=== PATIENT | male | born 1985 | race Caucasian/White ===

== ENCOUNTER 2017-03-09 11:38 | Emergency (ER) | payer SELFPAY ==
[2017-03-09] MEDS ORDERED: DEXAMETHASONE SOD PHOS INJ 10 MG/1 ML VIAL IM ONE (12:33)
--- NOTE | 2017-03-09 12:38 | ER Document Report ---
HPI - HPI Pain Level: 5 Notes: Patient is a 31-year-old male who presents the ED complaining of acute on chronic back pain status post injury while at work. 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 Patient states that since then he has not been able to stand straight up. Patient states that he will have intermittent numbness and tingling in his left foot, left toe, and left groin. Patient states that when he ambulates he feels like he is dragging his leg. Patient states that he did urinate thereafter, but states he had pain and some difficulty. Patient states that the active pushing caused his back pain to worsen, and with the amount of urine that he let out patient thought that it should came out easier. Patient denies any injections or procedures to his back , diabetes, IV drug use, or previous surgeries. His past medical history significant for hypertension. Patient does admit to smoking. Denies any headache, fever, chest pain, palpitations, syncope, cough, shortness of breath, wheeze, dyspnea, abdominal pain, nausea/vomiting/diarrhea, hematuria, loss of control of bowel or bladder, saddle anesthesia, muscle paralysis/weakness, or rash. Denies any recent illness or travel. - ROS Notes: REVIEW OF SYSTEMS: CONSTITUTIONAL : Denies fever, chills, or sweats. Denies recent illness. EENT: Denies eye, ear, throat, or mouth pain or symptoms. Denies nasal or sinus congestion or discharge. Denies throat, tongue, or mouth swelling or difficulty swallowing. CARDIOVASCULAR: Denies chest pain. Denies palpitations or racing or irregular heart beat. Denies ankle edema. RESPIRATORY: Denies cough, cold, or chest congestion. Denies shortness of breath, difficulty breathing, or wheezing. GASTROINTESTINAL: Denies abdominal pain or distention. Denies nausea, vomiting , or diarrhea. Denies blood in vomitus, stools, or per rectum. Denies black, tarry stools. Denies constipation. GENITOURINARY: see hpi MUSCULOSKELETAL: Denies back or neck pain or stiffness. Denies joint pain or swelling. SKIN: Denies rash, lesions or sores. NEUROLOGICAL: see hpi PSYCHIATRIC: Denies anxiety or stress. Denies depression, suicidal ideation, or homicidal ideation. ALL OTHER SYSTEMS REVIEWED AND NEGATIVE. Dictation was performed using [employer] voice recognition software - DERM Skin Color: Normal Past Medical History - Social History Smoking Status: Current Every Day Smoker Family History: Reviewed & Not Pertinent Patient has suicidal ideation: No Patient has homicidal ideation: No - Past Medical History Cardiac Medical History: Reports: Hx Hypertension Renal/ Medical History: Denies: Hx Peritoneal Dialysis Psychiatric Medical History: Reports: Hx Anxiety Past Surgical History: Reports: Hx Appendectomy - Immunizations Hx Diphtheria, Pertussis, Tetanus Vaccination: Yes Vertical Provider Document - CONSTITUTIONAL Agree With Documented VS: Yes Notes: No bladder perc PHYSICAL EXAMINATION: GENERAL: Well-appearing, well-nourished and in no acute distress. NECK: Normal range of motion, supple without lymphadenopathy LUNGS: Breath sounds clear to auscultation bilaterally and equal. No wheezes rales or rhonchi. HEART: Regular rate and rhythm without murmurs, rubs, gallops. ABDOMEN: Soft, nontender, nondistended abdomen. No guarding, no rebound. No masses appreciated. Normal bowel sounds present. No CVA tenderness bilaterally. No pulsatile mass. Musculoskeletal: LE's b/l: FROM to passive/active. Strength 5+/5. No focal deficits noted. No foot drop. No bony tenderness. Back: FROM to passive/active. No obvious deformity, abrasion, laceration noted. Strength 5+/5. + tenderness to the left L-paraspinal mm. No SI jt tenderness. Extremities: No cyanosis, clubbing, or edema b/l. Peripheral pulses 2+. Capillary refill less than 3 seconds. NEUROLOGICAL: ataxic gait. No foot drop. Normal sensory, motor exams. Sensation intact to sharp/soft/light. SLR negative b/l. Sphincter tone intact. PSYCH: Normal mood, normal affect. SKIN: Warm, Dry, normal turgor, no rashes or lesions noted. - INFECTION CONTROL TRAVEL OUTSIDE OF THE [place] IN LAST 30 DAYS: No - RESPIRATORY O2 Sat by Pulse Oximetry: 98 Course - Re-evaluation Re-evalutation: 03/09/17 14:[address] Turner who is in agreement with discharge/plan. Patient is an afebrile, well-hydrated, 31-year-old male who presents the ED with acute on chronic low back pain with radiculitis to his left lower extremity. Vitals are stable. PE otherwise unremarkable for any focal neurological deficits. Patient's symptoms have not been worsening during his stay in the ED. Decadron 10 mg given IM today. A postvoid residual US was unremarkable. Low suspicion for any meningitis, fracture, expanding/ruptured AAA, cauda equina syndrome, epidural mass lesion/abscess, herniated disc causing severe spinal stenosis, or other systemic infection at this time. Patient is aware that his condition can change from initial presentation and that he needs monitor symptoms closely for any acute changes. No other imaging warranted at this time based on H&P. Patient is still able to ambulate, but with an ataxic gait. Patient to be discharged in stable condition with strict return precautions. I will send him home with a prescription for baclofen, Voltaren gel, and naproxen to take as directed/needed. Conservative measures otherwise for symptoms as reviewed in discharge. Recheck with your PCM in 2-3 days. Consider consult with orthopedics and/or physical therapy. Return to the ED with any worsening/concerning symptoms otherwise as reviewed in discharge. - Vital Signs Vital signs: Temp Pulse Resp BP Pulse Ox 98.1 F 97 18 158/91 H 98 03/09/17 11:55 03/09/17 11:55 03/09/17 11:55 03/09/17 11:55 03/09/17 11:55 Discharge - Discharge Clinical Impression: Low back pain Qualifiers: Chronicity: acute Back pain laterality: left Sciatica presence: unspecified whether sciatica present Qualified Code(s): M54.5 - Low back pain Condition: Stable Disposition: HOME, SELF-CARE Instructions: Ice Packs ([facility]), Low Back Pain ([facility]), Muscle Strain ([facility]), Steroid Medication Injection, Stretching Exercises for the Back ([facility]), Warm Packs ([facility]), Follow-Up Care ([facility]) Additional Instructions: Rest, Ice Tylenol/ibuprofen as needed Light stretches daily Strength exercises as able Moist heat and massage may help F/u with your PCP in 2-3 days for a recheck Consider consult(s) with Orthopedics/physical therapy for ongoing/worsening symptoms Return to the ED with any worsening symptoms and/or development of fever, headache, chest pain, palpitations, syncope, shortness of breath, trouble breathing, abdominal pain, n/v/d, blood in stool/urine, loss of control of bowel /bladder, urinary retention, muscle weakness/paralysis, saddle anesthesia, numbness/tingling, or other worsening symptoms that are concerning to you. Prescriptions: Baclofen [Baclofen 10 mg Tablet] 5 mg PO BID PRN #10 tablet PRN Reason: Diclofenac Sodium [Voltaren] 4 gm TP QID PRN #100 gel..gm. PRN Reason: Naproxen 500 mg PO BID PRN #60 tablet PRN Reason: Forms: Elevated Blood Pressure, Smoking Cessation Education Referrals: [facility] [Provider Group] - Follow up as needed [facility] [Provider Group] - Follow up as needed [facility] [Provider Group] - Follow up as needed
--- NOTE | 2017-03-09 14:42 | RADIOLOGY REPORT (SQ) ---
EXAM DESCRIPTION: U/S RETROPERITON LTD COMPLETED DATE/TIME: 03/09/2017 2:32 pm REASON FOR STUDY: post-void residual COMPARISON: None. TECHNIQUE: Dynamic and static grayscale images acquired of the kidneys and bladder and recorded on P ACS. Additional selected color Doppler and spectral images recorded. LIMITATIONS: None. FINDINGS: RIGHT KIDNEY: Normal size. Normal echogenicity. No solid or suspicious masses. No h ydronephrosis. No calcifications. LEFT KIDNEY: Normal size. Normal echogenicity. No solid or suspicious masses. No hydronephrosi s. No calcifications. BLADDER: No masses. No postvoid residual. OTHER FINDINGS: No other significant finding. IMPRESSION: NORMAL RENAL AND BLADDER ULTRASOUND. No postvoid residual. TECHNICAL DOCUMENTATION: JOB ID: [id number] [employer]- All Rights Reserved
[2017-03-09 15:03] VITALS: BP 148/89
== END 2017-03-09 15:03 | disposition home or self-care (01) ==
LOC: ER 11:38
DX: M54.5 Low back pain (principal); M54.10 Radiculopathy, site unspecified; G89.29 Other chronic pain; R30.0 Dysuria; I10 Essential (primary) hypertension; F17.200 Nicotine dependence, unspecified, uncomplicated
CPT/HCPCS: 99284; 96372; 76775; J1100

== ENCOUNTER 2017-05-31 23:23 | Emergency (ER) | payer SELFPAY ==
[2017-05-31] MEDS ORDERED: DIPH/PERTUSS(ACELL)/TETANUS VAC/PF 0.5 ML SYR (>=10YO) IM ONE (23:43)
[2017-05-31] MEDS ORDERED: CEFAZOLIN 1 GM/D5W RTU 1 GM/50 ML RTUPB IV ONE (23:44)
--- NOTE | 2017-05-31 23:54 | ER Document Report ---
ED Wound - General Stated Complaint: NAIL IN RIGHT FOOT Time Seen by Provider: 05/31/17 23:28 Mode of Arrival: Medic Information source: Patient Notes: 32-year-old male presents to ED today via EMS reporting a foreign object in left foot. Patient reports he was building a fire earlier this evening and stepped back onto a piece of wood with a nail sticking up. Patient states he believes it is a 2 3/8" Ring Shank nail. Patient immediately treated area by saturating area with Hydrogen Peroxide. Patient complaining of altered sensation below injury, reporting his great toe is throbbing and he feels numbness between his middle toes. Reports full range of movement. Believes last Tetanus immunization was about 5 years ago. TRAVEL OUTSIDE OF THE [place] IN LAST 30 DAYS: No - Related Data Allergies/Adverse Reactions: No Known Allergies Allergy (Verified 03/09/17 11:55) Past Medical History - General Information source: Patient - Social History Smoking Status: Current Every Day Smoker Family History: Reviewed & Not Pertinent - Past Medical History Cardiac Medical History: Reports: Hx Hypertension Renal/ Medical History: Denies: Hx Peritoneal Dialysis Psychiatric Medical History: Reports: Hx Anxiety Past Surgical History: Reports: Hx Appendectomy - Immunizations Hx Diphtheria, Pertussis, Tetanus Vaccination: Yes Review of Systems - Review of Systems Constitutional: See HPI EENT: No symptoms reported Cardiovascular: No symptoms reported Respiratory: No symptoms reported Gastrointestinal: No symptoms reported Genitourinary: No symptoms reported Male Genitourinary: No symptoms reported Musculoskeletal: No symptoms reported Skin: See HPI Hematologic/Lymphatic: No symptoms reported Neurological/Psychological: See HPI Physical Exam - Vital signs Vitals: Temp Pulse Resp BP Pulse Ox 97.4 F 86 18 143/99 H 99 05/31/17 23:28 05/31/17 23:28 05/31/17 23:28 05/31/17 23:28 05/31/17 23:28 - Notes Notes: PHYSICAL EXAMINATION: GENERAL: Uncomfortable appearing, but in no acute distress. Alert, oriented, and cooperative with exam. HEAD: Atraumatic, normocephalic. LUNGS: CTAB and equal. No wheezes rales or rhonchi. HEART: Regular rate and rhythm without murmurs EXTREMITIES: Left lower extremity with normal range of motion, no edema, no cyanosis, normal color, good capillary refill and pulses NEUROLOGICAL: Normal sensory/motor exams to left lower extremity PSYCH: Normal mood, normal affect. SKIN: Warm, Dry, normal turgor, foreign object noted protruding from bottom of left foot Course - Re-evaluation Re-evalutation: PreProcedure xray: Foreign body in the plantar soft tissue. No acute bony findings. PostProcedure xray: No acute fracture. No foreign body identified. Patient tolerated simple removal of nail well. Puncture wound was thoroughly cleaned and dressed. Patient provided with and educated on proper use of crutches. Will provide Tdap immunization and preventative antibacterial coverage. Additionally patient provided with short-term narcotic pain medication and given strict follow-up instructions and return precautions. - Vital Signs Vital signs: Temp Pulse Resp BP Pulse Ox 99.1 F 78 16 124/82 100 06/01/17 01:25 06/01/17 01:25 06/01/17 01:25 06/01/17 01:25 06/01/17 01:25 - Diagnostic Test Radiology reviewed: Reports reviewed Procedures - Additional Procedures Foreign Object Removal Time performed: 00:13 Notes: 06/01/17 00:13 Procedure completed with complications. Patient tolerated procedure well. Discharge - Discharge Clinical Impression: Nail entering through skin, initial encounter Condition: Stable Disposition: HOME, SELF-CARE Instructions: Cephalexin ([facility]), Ciprofloxacin ([facility]), Oral Narcotic Medication ( [facility]), Tetanus Immunization Given ([facility]) Additional Instructions: Puncture Wound You have a puncture wound. Because these wounds often penetrate deeply beneath the skin, you must observe them carefully for complications. The wound has been examined for retained foreign material and for damage to tendons and nerves. The area should be rested and elevated for 24 hours. Then you can use the injured part -- if moving it is pain free. Punctures of the hand or foot may require splinting or crutches. The dressing should be changed daily until the wound is healed. Watch for signs of infection. Call the doctor immediately if redness, swelling, warmth, increasing pain, or wound drainage occur. If you develop numbness, persistent bleeding, or inability to move the injured area, please return for prompt re-evaluation. Return immediately for any new or worsening symptoms. Follow up with primary care provider, call tomorrow to make follow up appointment. Prescriptions: Cephalexin Monohydrate [Keflex 500 mg Capsule] 500 mg PO BID 5 Days #10 capsule Ciprofloxacin HCl [Cipro 500 mg Tablet] 500 mg PO BID #10 tablet Forms: Return to Work Referrals: [facility] [NO LOCAL MD] - Follow up as needed
--- NOTE | 2017-06-01 00:06 | RADIOLOGY REPORT (SQ) ---
EXAM DESCRIPTION: FOOT LEFT 2 VIEWS COMPLETED DATE/TIME: 05/31/2017 11:55 pm REASON FOR STUDY: Foreign object (nail) in foot COMPARISON: None. NUMBER OF VIEWS: Two views. TECHNIQUE: AP and lateral radiographic images acquired of the left foot. LIMITATIONS: None. FINDINGS: MINERALIZATION: Normal. BONES: No acute fracture or dislocation. No worrisome bone lesions. JOINTS: No effusions. SOFT TISSUES: Foreign body (nail) entering the plantar soft tissues with no contact of the adjacent b ones. OTHER: No other significant finding. IMPRESSION: FOREIGN BODY IN THE PLANTAR SOFT TISSUES. NO ACUTE BONY FINDINGS. TECHNICAL DOCUMENTATION: JOB ID: [id number] [email or web address]- All Rights Reserved
[2017-06-01] MEDS ORDERED: CIPROFLOXACIN HCL 500 MG TABLET PO ONE (00:08)
--- NOTE | 2017-06-01 00:24 | RADIOLOGY REPORT (SQ) ---
EXAM DESCRIPTION: FOOT LEFT 2 VIEWS CLINICAL HISTORY: Post foreign object removal COMPARISON: 05/31/2017 FINDINGS: 2 views of the left foot. No acute fracture or dislocation. Normal osseous mineralization. No radiopaque foreign body identified. IMPRESSION: 1. No acute fracture. No radiopaque foreign body identified.
[2017-06-01] MEDS ORDERED: HYDROCODONE/ACETAMINOPHEN 5-325 MG (6 TAB/ER DISP) PO PRN (00:59)
[2017-06-01 01:37] VITALS: BP 124/82
== END 2017-06-01 01:29 | disposition home or self-care (01) ==
LOC: ER 23:23
PROC: 0JCR0ZZ Extirpation of Matter from Left Foot Subcutaneous Tissue and Fascia, Open Approach (ICD-10-PCS; principal; 2017-05-31)
DX: S91.342A Puncture wound with foreign body, left foot, initial encounter (principal); W22.09XA Striking against other stationary object, initial encounter; Z23 Encounter for immunization; F17.200 Nicotine dependence, unspecified, uncomplicated
CPT/HCPCS: 99284; 90471; 96365; 73620; 90715; 20103; J0690

== ENCOUNTER 2017-06-20 00:24 | Emergency (ER) | payer SELFPAY ==
[2017-06-20 01:00] LABS: ABSOLUTE EOSINOPHILS # (AUTO) 0.2 10^3/uL (0.0-0.6); ABSOLUTE LYMPHOCYTES (AUTO) 2.2 10^3/uL (0.5-4.7); ABSOLUTE MONOCYTES (AUTO) 0.9 10^3/uL (0.1-1.4); ABSOLUTE NEUT (AUTO) 2.2 10^3/uL (1.7-8.2); BASOPHILS % (AUTO) 0.7 % (0-2); HEMATOCRIT 35.5 % (37.9-51.0); HEMOGLOBIN 12.2 g/dL (13.5-17.0); HGB HCT DIFFERENCE 1.1; MEAN CORPUSCULAR HEMOGLOBIN 31.1 pg (27.0-33.4); MEAN CORPUSCULAR HGB CONC 34.4 g/dL (32.0-36.0); MEAN CORPUSCULAR VOLUME 91 fl (80-97); MONOCYTES % (AUTO) 16.9 % (3-13); RED BLOOD COUNT 3.92 10^6/uL (4.35-5.55); SEGMENTED NEUTROPHILS % (AUTO) 39.4 % (42-78); WHITE BLOOD COUNT 5.5 10^3/uL (4.0-10.5)
[2017-06-20] MEDS ORDERED: ACETAMINOPHEN 325 MG TABLET PO ONE (01:11)
--- NOTE | 2017-06-20 01:34 | RADIOLOGY REPORT (SQ) ---
EXAM DESCRIPTION: CT PELVIS WITHOUT CLINICAL HISTORY: 32 years Male, trauma. Please get bilateral hips COMPARISON: None. TECHNIQUE: This exam was performed according to our departmental dose-optimization program, which includes automated exposure control, adjustment of the mA and/or kV according to patient size and/or use of iterative reconstruction technique. FINDINGS: No acute findings. No evidence of fracture or dislocation. Pelvis and bilateral hips appear intact. Minimal disc bulge between the L4 and S1 levels. L5 transitional vertebral body. No free fluid in the pelvis. Intrapelvic structures appear unremarkable. IMPRESSION: Intact CT appearance of bilateral hips.
--- NOTE | 2017-06-20 02:29 | ER Document Report ---
ED General - General Chief Complaint: Fall Injury Stated Complaint: HIP PAIN Time Seen by Provider: 06/20/17 00:34 TRAVEL OUTSIDE OF THE [place] IN LAST 30 DAYS: No - Related Data Allergies/Adverse Reactions: No Known Allergies Allergy (Verified 03/09/17 11:55) Past Medical History - Social History Smoking Status: Current Every Day Smoker Chew tobacco use (# tins/day): No Frequency of alcohol use: Occasional Family History: Reviewed & Not Pertinent Patient has suicidal ideation: No Patient has homicidal ideation: No - Past Medical History Cardiac Medical History: Reports: Hx Hypertension Renal/ Medical History: Denies: Hx Peritoneal Dialysis Psychiatric Medical History: Reports: Hx Anxiety Past Surgical History: Reports: Hx Appendectomy - Immunizations Hx Diphtheria, Pertussis, Tetanus Vaccination: Yes Physical Exam - Vital signs Vitals: Temp Pulse Resp BP Pulse Ox 98.7 F 98 18 130/84 H 100 06/20/17 00:25 06/20/17 00:25 06/20/17 00:25 06/20/17 00:25 06/20/17 00:25 Course - Re-evaluation Re-evalutation: 06/20/17 02:52 - Vital Signs Vital signs: Temp Pulse Resp BP Pulse Ox 98.7 F 98 18 130/84 H 100 06/20/17 00:25 06/20/17 00:25 06/20/17 00:25 06/20/17 00:25 06/20/17 00:25 - Laboratory Result Diagrams: 06/20/17 00:45 06/20/17 02:35 Laboratory results interpreted by me: 06/20/17 00:45 RBC 3.92 L Hgb 12.2 L Hct 35.5 L RDW 16.0 H Seg Neutrophils % 39.4 L Monocytes % 16.9 H - EKG Interpretation by Me Additional EKG results interpreted by me: 06/20/17 02:52
[2017-06-20] MEDS ORDERED: KETOROLAC TROMETHAMINE INJ/PF 30 MG/1 ML SDV IM ONE (02:45)
[2017-06-20] MEDS ORDERED: KETOROLAC TROMETHAMINE 10 MG TABLET PO ONE (02:49)
--- NOTE | 2017-06-20 02:52 | ER Document Report ---
ED General - General Chief Complaint: Fall Injury Stated Complaint: HIP PAIN Time Seen by Provider: 06/20/17 00:34 Notes: Patient is a 32-year-old male who initially presents with complaint of fall. He says he hurt his right hip any fall fell. He says he has chronic left hip pain. Since been ongoing for several months. He says he was seen here in the past and diagnosed with sciatica. He said he then went to [facility] and was told that he had an infection of said. He said that time he did not want stay and therefore left AGAINST MEDICAL ADVICE. He said he went back a few weeks later she is still having difficulty walking and pain in his left hip. At that time he was told that despite not being on antibiotics infection is getting better and he did not need admission and they still placed him on antibiotics but told to follow-up with orthopedic patient says he has not been taking the antibiotics because they make him feel sick and he never followed up with orthopedics he does not have money. He does not drink some alcohol tonight. He denies drinking alcohol on a daily basis. He says that he has numbness and tingling going to his lower extremities. He denies loss of bowel control. No urinary retention. He denies any associated low back pain. He says all the pain is in his hips as well as some pain that radiates around his tip and into his left inguinal area. TRAVEL OUTSIDE OF THE [place] IN LAST 30 DAYS: No - Related Data Allergies/Adverse Reactions: No Known Allergies Allergy (Verified 03/09/17 11:55) Past Medical History - Social History Smoking Status: Current Every Day Smoker Chew tobacco use (# tins/day): No Frequency of alcohol use: Occasional Drug Abuse: None Family History: Reviewed & Not Pertinent Patient has suicidal ideation: No Patient has homicidal ideation: No - Past Medical History Cardiac Medical History: Reports: Hx Hypertension Renal/ Medical History: Denies: Hx Peritoneal Dialysis Psychiatric Medical History: Reports: Hx Anxiety Past Surgical History: Reports: Hx Appendectomy - Immunizations Hx Diphtheria, Pertussis, Tetanus Vaccination: Yes Review of Systems - Review of Systems Notes: My Normal Review Basic REVIEW OF SYSTEMS: CONSTITUTIONAL : Denies fever, chills, or sweats. Denies recent illness. EENT: Denies eye, ear, throat, or mouth pain or symptoms. Denies nasal or sinus congestion. RESPIRATORY: Denies cough, cold, or chest congestion. Denies shortness of breath, difficulty breathing, or wheezing. GASTROINTESTINAL: Denies abdominal pain. Denies nausea, vomiting, or diarrhea. Denies constipation. Last BM: MUSCULOSKELETAL: Bilateral hip pain SKIN: Denies rash or skin lesions. NEUROLOGICAL: Denies altered mental status or loss of consciousness. Denies headache. Denies weakness or paralysis or loss of use of either side. Denies problems with gait or speech. tingling sensation to both feet. ALL OTHER SYSTEMS REVIEWED AND NEGATIVE. Physical Exam - Vital signs Vitals: Temp Pulse Resp BP Pulse Ox 98.7 F 98 18 130/84 H 100 06/20/17 00:25 06/20/17 00:25 06/20/17 00:25 06/20/17 00:25 06/20/17 00:25 - Notes Notes: General Appearance: Well nourished, alert, cooperative, no acute distress, moderate obvious discomfort. She is obviously intoxicated with alcohol. Vitals: reviewed, See vital signs table. Head: no swelling or tenderness to the head Eyes: PERRL, EOMI, Conjuctiva clear Mouth: No decreasd moisture Neck: Supple, no neck tenderness, No thyromegaly Lungs: No wheezing, No rales, No rhonci, No accessory muscle use, good air exchange bilaterally. Heart: Normal rate, Regular rythm, No murmur, no rub Abdomen: Normal BS, soft, No rigidity, No abdominal tenderness, No guarding, no rebound, no abdominal masses, no organomegaly Extremities: On exam patient's does have pain with range of motion of the right hip. He also has pain when I place his left at the range of motion. He has pain when I flex both hips; however, when I am assessing in other areas patient will turn and roll bed and flex his hips on his own without appearing to have a lot of pain. He has good strength with plantar dorsiflexion of both feet. He did feel me touch both feet; however, the patient says it feels somewhat "tingly ". Patient is able to stand and walk on his own however he does limp some and says it is painful to walk. Skin: warm, dry, appropriate color, no rash Neuro: speech clear, oriented x 3, intoxicated affect, responds appropriately to questions. Course - Re-evaluation Re-evalutation: 06/20/17 02:52 06/20/17 02:25 Patient's mother called the ER because she says that the patient is texting her saying that he wants to kill himself. I did talk to mother on the phone and she did send me a text messages. The text messages read as follow, "Mom love ya but I'm cutting my IV. tell eugenie I love her more than she knows and think u for ebing here for me. u will b down one son in 15 min" and " Fuck it u want carry me home and I'm single now. i dont give a fuck. im out please give me a bereal". Patient does have some alcohol intoxication this time. Asked the mother if he drinks every day. Mother says he does not drink everyday but does drink often. Asked if he ever has alcohol withdrawal the mother says no, but sometimes he will have withdrawal from pain medications if he goes a while without having them. 06/20/17 02:28 I have placed the patient on IV PCP report. I did inform the patient that we are filling obvious paperwork and that she needs to stay significant him psychiatric help. Patient's did give the nurse at the empty bottle of methocarbamol 500 mg tablets. He said there is only 3 tablets in the bottle but he took them all. It is unknown exactly him the tablets are actually in the bottle before the patient took them. Patient does have a previous history of suicidal ideations and psychiatric illness. 06/20/17 02:58 I did receive records from [facility] to further delineate exactly the patient's department when he said he had a hip infection as his history did not make sense as he said it on repeat visit they told him everything was improved but still place him on antibiotics. I did review the records. The history according to records is that the patient had a CT scan on June 13. At that time they did see some gas in the quadriceps muscle. He also had a BB in the muscle. It appears that this was probably traumatic but they could rule out infection at that time. The patient left and returned on June 18. On June [address] scan and the gas resolved. Patient was discharged and informed to follow-up with orthopedics. He was not placed on antibiotics. She was discharged with Naprosyn and Robaxin and it appears that the ER physician had a discussion with the patient informing him that he would not be receiving any further oral narcotic medications and that he must follow up with the orthopedist in regards to his chronic left hip pain. Patient never followed up with orthopedics. 06/20/17 05:45 Patient is medically stable for psychiatric evaluation. He is on obvious paperwork. I suspect that his hip pain is related to his back and sciatica. I did review the [facility] records and the patient does not appear to have any type of infection and what small amount of gas he had in the quadriceps muscle was gone as of June 18 on his repeat visit there. He has not supposed be on antibiotics. He has no white count no fever here. His CT scan is negative. Patient's will eventually need to follow-up with orthopedics as told him in the past his previous visits. She does not have any signs of cauda equina syndrome. He has no loss of bowel control. No urinary retention. He is able to stand and walk even though he does have some pain in doing so. He does have good strength in his legs. Distal sensation is intact. Dictation of this chart was performed using voice recognition software; therefore, there may be some unintended grammatical errors. 06/20/17 05:46 - Vital Signs Vital signs: Temp Pulse Resp BP Pulse Ox 98.7 F 98 18 130/84 H 100 06/20/17 00:25 06/20/17 00:25 06/20/17 00:25 06/20/17 00:25 06/20/17 00:25 - Laboratory Result Diagrams: 06/20/17 00:45 06/20/17 02:35 Laboratory results interpreted by me: 06/20/17 06/20/17 00:45 02:35 RBC 3.92 L Hgb 12.2 L Hct 35.5 L RDW 16.0 H Seg Neutrophils % 39.4 L Monocytes % 16.9 H Sodium 152.3 H Chloride 114 H AST 75 H ALT 74 H Salicylates < 1.0 L Acetaminophen < 10 L - EKG Interpretation by Me Additional EKG results interpreted by me: 06/20/17 02:52 06/20/17 02:46 EKG is reviewed and interpreted by me. EKG shows sinus arrhythmia with a rate of [address] segment elevation consistent with early repolarization abnormality. No reciprocal ST segment depression. MO interval, QRS duration, QTc intervals are within normal range. No old EKG available for comparison. Discharge - Discharge Clinical Impression: Hip pain, bilateral, Suicidal ideations
[2017-06-20 03:12] LABS: ALANINE AMINOTRANSFERASE 74 U/L (21-72); ALBUMIN 4.1 g/dL (3.5-5.0); ALCOHOL 245 mg/dL (NONE DETECTED); ALKALINE PHOSPHATASE 56 U/L (38-126); ANION GAP 14 (5-19); ASPARTATE AMINO TRANSFERASE 75 U/L (17-59); BILIRUBIN,DIRECT 0.2 mg/dL (0.0-0.4); BILIRUBIN,TOTAL 0.2 mg/dL (0.2-1.3); BLOOD UREA NITROGEN 9 mg/dL (7-20); CALCIUM 8.6 mg/dL (8.4-10.2); CARBON DIOXIDE 24 mmol/L (22-30); CHLORIDE 114 mmol/L (98-107); CREATININE RESULT 0.78 mg/dL (0.52-1.25); GLUCOSE 93 mg/dL (75-110); POTASSIUM 4.1 mmol/L (3.6-5.0); SODIUM 152.3 mmol/L (137-145); TOTAL PROTEIN 7.3 g/dL (6.3-8.2)
--- NOTE | 2017-06-20 07:16 | EKG REPORT ---
SEVERITY:- OTHERWISE NORMAL ECG - SINUS RHYTHMIA, APC ST ELEV, PROBABLE NORMAL EARLY REPOL PATTERN : Confirmed by: Abelardo Mckeon 20-Jun-2017 17:45:29
--- NOTE | 2017-06-20 08:59 | ER Document Report ---
ED Medical Screen (RME) - General Chief Complaint: Fall Injury Stated Complaint: HIP PAIN Time Seen by Provider: 06/20/17 00:34 TRAVEL OUTSIDE OF THE [place] IN LAST 30 DAYS: No - Related Data Allergies/Adverse Reactions: No Known Allergies Allergy (Verified 03/09/17 11:55) Past Medical History - Social History Chew tobacco use (# tins/day): No Frequency of alcohol use: Occasional Drug Abuse: None - Past Medical History Cardiac Medical History: Reports: Hx Hypertension Renal/ Medical History: Denies: Hx Peritoneal Dialysis Psychiatric Medical History: Reports: Hx Anxiety Past Surgical History: Reports: Hx Appendectomy - Immunizations Hx Diphtheria, Pertussis, Tetanus Vaccination: Yes Physical Exam - Vital signs Vitals: Temp Pulse Resp BP Pulse Ox 98.7 F 98 18 130/84 H 100 06/20/17 00:25 06/20/17 00:25 06/20/17 00:25 06/20/17 00:25 06/20/17 00:25 Course - Re-evaluation Re-evalutation: 06/20/17 08:59 As the [facility] emergency department emergency physician I examined this patient. I reviewed the patient's chart. The patient is currently resting comfortably and requires no acute medical intervention. Disposition per psychiatry. - Vital Signs Vital signs: Temp Pulse Resp BP Pulse Ox 98.7 F 98 18 130/84 H 100 06/20/17 00:25 06/20/17 00:25 06/20/17 00:25 06/20/17 00:25 06/20/17 00:25 - Laboratory Result Diagrams: 06/20/17 00:45 06/20/17 02:35 Laboratory results interpreted by me: 06/20/17 06/20/17 00:45 02:35 RBC 3.92 L Hgb 12.2 L Hct 35.5 L RDW 16.0 H Seg Neutrophils % 39.4 L Monocytes % 16.9 H Sodium 152.3 H Chloride 114 H AST 75 H ALT 74 H Salicylates < 1.0 L Acetaminophen < 10 L Doctor's Discharge - Discharge Clinical Impression: Hip pain, bilateral, Suicidal ideations
[2017-06-20 12:51] LABS: APPEARANCE,URINE CLEAR; BILIRUBIN,URINE NEGATIVE (NEGATIVE); GLUCOSE, URINE NEGATIVE (NEGATIVE); KETONES,URINE NEGATIVE (NEGATIVE); LEUKOCYTE ESTERASE,URINE NEGATIVE (NEGATIVE); NITRITE,URINE NEGATIVE (NEGATIVE); PROTEIN,URINE NEGATIVE (NEGATIVE); URINE SPECIFIC GRAVITY 1.019
[2017-06-20 12:59] LABS: BACTERIA,URINE TRACE /HPF; RBC,URINE 0-1 /HPF; URINE BARBITURATES SCREEN NEGATIVE; URINE METHADONE SCREEN NEGATIVE; URINE OPIATES LOW NEGATIVE; URINE PHENCYCLIDINE SCREEN NEGATIVE
[2017-06-20 15:47] VITALS: BP 134/94
--- NOTE | 2017-06-21 13:08 | PSYCHOLOGICAL NOTE ---
Psych Note - Psych Note Psych Note: Patient is a 32-year-old male who initially presents with complaint of fall. He says he hurt his right hip any fall fell. He says he has chronic left hip pain. Since been ongoing for several months. He says he was seen here in the past and diagnosed with sciatica. Patient was placed under IVC when Patient's mother called [facility] ED: Attending physician noted: Patient's mother called the ER because she says that the patient is texting her saying that he wants to kill himself. I did talk to mother on the phone and she did send me a text messages. The text messages read as follow, "Mom love ya but I'm cutting my IV. tell eugenie I love her more than she knows and think u for ebing here for me. u will b down one son in 15 min" and " Fuck it u want carry me home and I'm single now. i dont give a fuck. im out please give me a bereal". Patient does have some alcohol intoxication this time. Asked the mother if he drinks every day. Mother says he does not drink everyday but does drink often. Patient's did give the nurse at the empty bottle of methocarbamol 500 mg tablets. He said there is only 3 tablets in the bottle but he took them all. It is unknown exactly him the tablets are actually in the bottle before the patient took them. Patient disclosed that he was drinking last night. He reports that he had some stressful situations such as his vehicle breaking down twice within the last week. Clinician asked if patient ever received substance abuse treatment patient denied stating that he needed to do it though because he received a DUI and lost his license. Patient asked why his vehicle breaking down was so stressful if he was unable to drive since he had a license patient stated "oh I lost a long time ago." Patient denies suicidal ideation. He disclosed his mother just exaggerates everything. Patient's mother came to [facility] ED. Clinician was able to speak with her she discloses that she does not feel the patient is a danger to himself. She continued to state that the patient only was feeling bad because he was drunk. She confirms she would like to be part of patient's discharge plan to ensure the patient does not have access to weapons or medications and follows up with outpatient mental health and substance abuse treatment. Patient is alert and orientated to person place time and circumstance. Mood is irritable with congruent affect. Patient denies current suicidal ideations stating he was drunk last night. Patient denies homicidal ideation. Patient denies auditory visual hallucinations. Delusions are absent and behaviors congruent with intact reality based presentation i.e. organized, linear, rational thinking. Eye contact was fair. Conversational speech was within normal rate, tone and prosody. Intellectual abilities appear to be within the average range. Attention and concentration are good. Insight, judgment, impulse control are fair. 303.00 (F10.129) alcohol intoxication; with use disorder, mild 292.9 (1 4.99) unspecified stimulant related disorder; cocaine 292.9 (F13.99) unspecified benzodiazepine disorder Impression\\plan: Patient is recommended for rescind of IVC is considered psychiatrically clear for discharge. Patient no longer meets IVC criteria per [place] GS 122C. Patient's blood alcohol level was 245 and toxicology screening indicates cocaine and benzodiazepine use upon arrival. Patient disclosed he has no home medications. Patient patient is no longer under the influence and has denied suicidal ideation. Patient's mother disclosed that she does not feel the patient is a danger to himself that he only said suicidal comments because he was under the influence. Patient's mother agrees to be part of patient's discharge plan to ensure patient does not have access to medications and weapons in addition to following up with treatment. Patient is recommended to follow-up with both mental health and substance abuse treatment. Dr. Arshad was consulted and the care management of this patient; attending physician is in agreement with recommendations and disposition.
== END 2017-06-20 16:13 | disposition home or self-care (01) ==
LOC: ER 00:24
DX: M25.551 Pain in right hip (principal); M25.552 Pain in left hip; R45.851 Suicidal ideations; R20.0 Anesthesia of skin; W19.XXXA Unspecified fall, initial encounter; F17.200 Nicotine dependence, unspecified, uncomplicated; Z72.89 Other problems related to lifestyle
CPT/HCPCS: 93005; 99285; 36415; 80307 ×4; 85025; 80053; 81001; 72192; 93010; J3490

== ENCOUNTER 2018-01-15 02:22 | Emergency (ER) | payer SELFPAY ==
--- NOTE | 2018-01-15 02:44 | ER Document Report ---
ED Fall - General Chief Complaint: Fall Injury Stated Complaint: FALL,NECK AND HEAD PAIN Time Seen by Provider: 01/15/18 02:36 Notes: Patient is a 32-year-old male comes by EMS for chief complaint of alcohol intoxication and fall. He states he was staying at an apartment, fell down 2 stories and landed and hit his head on a pole, patient reportedly had a syncopal episode from the injury, he is unsure who called EMS. He states his head feels fuzzy and he has pain in his mid chest and upper abdomen. He denies back pain. He is not on a blood thinner, denies any medications other than anxiety medication. He denies any recreational drugs. TRAVEL OUTSIDE OF THE [place] IN LAST 30 DAYS: No - Related data Allergies/Adverse Reactions: No Known Allergies Allergy (Verified 06/20/17 09:55) Past Medical History - General Information source: Patient - Social History Smoking Status: Never Smoker Frequency of alcohol use: Social Lives with: Alone Family History: Reviewed & Not Pertinent - Past Medical History Cardiac Medical History: Reports: Hx Hypertension Renal/ Medical History: Denies: Hx Peritoneal Dialysis Psychiatric Medical History: Reports: Hx Anxiety Past Surgical History: Reports: Hx Appendectomy - Immunizations Hx Diphtheria, Pertussis, Tetanus Vaccination: Yes Review of Systems - Review of Systems Constitutional: No symptoms reported EENT: No symptoms reported Cardiovascular: No symptoms reported Respiratory: No symptoms reported Gastrointestinal: No symptoms reported Genitourinary: No symptoms reported Male Genitourinary: No symptoms reported Musculoskeletal: See HPI Skin: No symptoms reported Hematologic/Lymphatic: No symptoms reported Neurological/Psychological: See HPI Physical Exam - Vital signs Vitals: Resp Pulse Ox 22 H 98 01/15/18 02:48 01/15/18 02:48 - Notes Notes: GENERAL: Patient slurring some words, however he remains alert, he follows directions. He does not appear to be in any distress. HEAD: Normocephalic, atraumatic. No obvious signs of trauma. EYES: Pupils equal, round, and reactive to light. Extraocular movements intact. ENT: Oral mucosa moist, tongue midline. [Nares patent, no nasal septal hematoma , TM's intact.] NECK: Full range of motion. Supple. Trachea midline. LUNGS: Clear to auscultation bilaterally, no wheezes, rales, or rhonchi. No respiratory distress. No noted signs of trauma over the chest. Minimal tenderness to palpation over the lower ribs anteriorly. HEART: Regular rate and rhythm. No murmur ABDOMEN: Patient reports pain with palpation of the upper abdomen generally, no signs of trauma, no noted guarding.. Non-distended. Bowel sounds present in all 4 quadrants. EXTREMITIES: Moves all 4 extremities spontaneously. No edema, normal radial and dorsalis pedis pulses bilaterally. No cyanosis. BACK: no cervical, thoracic, lumbar midline tenderness. No saddle anesthesia, normal distal neurovascular exam. NEUROLOGICAL: Patient oriented to person, place, some events although he cannot remember what happened after the fall. Occasional mildly slurred speech. [ cranial nerves II through XII grossly intact]. SKIN: Warm, dry, normal turgor. No rashes or lesions noted. Course - Re-evaluation Re-evalutation: Patient reporting pain over the mid lower anterior chest and upper abdomen although there is no bruising, no sign of trauma over his head, no bruising on the extremities, he does report some hip pain. Vital signs unremarkable. Because of reported alcohol and reported multiple locations of pain including head injury loss of consciousness patient will have CAT scan of the head, neck, chest, abdomen, pelvis. Patient does state agreement with this. 01/15/18 07:05 Multiple delays in not getting radiology read in a timely manner, called radiology partners and feed research technician multiple times, at this point we have received fax showing normal CT of the head, unremarkable CT of the abdomen, pelvis, chest, however still pending radiology report on the cervical spine. Patient had to be medicated for pain because he became very uncomfortable but otherwise patient has not had any decompensation. He has remained in the c- collar. 01/15/18 07:43 Dr. Wood called and reported that the C-spine is clear. I discussed all results with patient. Discussed expectations, follow-up, and return precautions. Patient states he will be calling his mom to get a ride. - Vital Signs Vital signs: Temp Pulse Resp BP Pulse Ox 17 112/77 100 01/15/18 07:01 01/15/18 07:01 01/15/18 07:01 - Laboratory Result Diagrams: 01/15/18 02:55 01/15/18 02:55 Laboratory results interpreted by me: 01/15/18 01/15/18 02:55 02:55 RDW 16.2 H Chloride 108 H Discharge - Discharge Clinical Impression: Head injury Qualifiers: Encounter type: initial encounter Qualified Code(s): S09.90XA - Unspecified injury of head, initial encounter Fall Qualifiers: Encounter type: initial encounter Qualified Code(s): W19.XXXA - Unspecified fall, initial encounter Alcohol intoxication Qualifiers: Complication of substance-induced condition: with unspecified complication Qualified Code(s): F10.929 - Alcohol use, unspecified with intoxication, unspecified Hip pain Qualifiers: Laterality: bilateral Qualified Code(s): M25.551 - Pain in right hip Chest pain Qualifiers: Chest pain type: unspecified Qualified Code(s): R07.9 - Chest pain, unspecified Abdominal pain Qualifiers: Abdominal location: generalized Qualified Code(s): R10.84 - Generalized abdominal pain Condition: Stable Disposition: HOME, SELF-CARE Additional Instructions: The CAT scan of your head, neck, chest, abdomen, pelvis and bones do not show any fractures or concerning findings from the fall. The blood work does not show any concerning findings. You will likely be very sore, progressively for a couple of days. Take muscle relaxer, [id number] anti-inflammatories, and rest. Avoid alcohol intoxication. Follow-up with primary care. Follow head injury precautions and postconcussive symptoms listed below. Return immediately for any concerning or worsening symptoms. Head Injury Precautions At this point, there is no evidence that your head injury is serious. Observation is necessary, however. Take only clear liquids for the first few hours, unless told otherwise by the doctor. If no pain medication was prescribed, you may take acetaminophen according to the directions on the bottle. Do not take any medication that may alter your level of alertness (unless you've discussed it with the doctor first) . Limit activity for the first 24 hours. Bed rest is best. During the first 24 hours, check to see approximately every two to three hours that the patient is easily arousable, responds normally, and can perform common tasks such as walking without difficulty. Contact your doctor or go to the hospital if any of the following things occur: Persistent vomiting, difficulty in arousing the patient, worsening or continued headache, or failure to improve as expected. Head injuries can cause symptoms that persist for a few days or even a few weeks. Post-Concussion Syndrome Post-concussion syndrome often follows a mild head injury. Dizziness, mild nausea, mild headache, trouble concentrating, and a general sense of "not being right" may persist for a week or two. This is a frequent complication of concussion. However, if the symptoms worsen, or new symptoms develop, you should be re-examined by the physician. There is no specific cure for post-concussion syndrome. You can take mild pain medication such as ibuprofen or acetaminophen. While you should not drive if you are dizzy, you can get back to your regular activities as quickly as the symptoms will allow. And while vigorous exercise may worsen the headache, mild physical activity often is helpful. Sitting and thinking about your symptoms will worsen them. If difficulties continue, you may need referral for special therapy to help you regain full mental function. Call the physician if you are worsening, or if symptoms are still present in one week. Report any new symptoms immediately. Prescriptions: Methocarbamol [Robaxin 750 mg Tablet] 750 mg PO Q6 #20 tablet Forms: Return to Work
[2018-01-15 03:04] LABS: ABSOLUTE EOSINOPHILS # (AUTO) 0.1 10^3/uL (0.0-0.6); ABSOLUTE MONOCYTES (AUTO) 0.9 10^3/uL (0.1-1.4); ABSOLUTE NEUT (AUTO) 5.2 10^3/uL (1.7-8.2); BASOPHILS % (AUTO) 0.6 % (0-2); EOSINOPHILS % (AUTO) 1.2 % (0-6); HEMATOCRIT 43.4 % (37.9-51.0); HEMOGLOBIN 14.9 g/dL (13.5-17.0); LYMPHOCYTES % (AUTO) 24.1 % (13-45); MEAN CORPUSCULAR HEMOGLOBIN 29.8 pg (27.0-33.4); MEAN CORPUSCULAR HGB CONC 34.4 g/dL (32.0-36.0); MEAN CORPUSCULAR VOLUME 86 fl (80-97); MONOCYTES % (AUTO) 10.6 % (3-13); PLATELET COUNT 289 10^3/uL (150-450); RED BLOOD COUNT 5.02 10^6/uL (4.35-5.55); RED CELL DISTRIBUTION WIDTH 16.2 % (11.5-14.0); SEGMENTED NEUTROPHILS % (AUTO) 63.5 % (42-78); TOTAL CELLS COUNTED % (AUTO) 100 %; WHITE BLOOD COUNT 8.1 10^3/uL (4.0-10.5)
[2018-01-15 03:17] LABS: ANION GAP 11 (5-19); BLOOD UREA NITROGEN 14 mg/dL (7-20); CALCIUM 9.8 mg/dL (8.4-10.2); CARBON DIOXIDE 25 mmol/L (22-30); CHLORIDE 108 mmol/L (98-107); GLUCOSE 98 mg/dL (75-110); SODIUM 144.1 mmol/L (137-145)
[2018-01-15] MEDS ORDERED: LORAZEPAM INJ 2 MG/1 ML VIAL IV ONE (05:43)
[2018-01-15] MEDS ORDERED: LORAZEPAM INJ 2 MG/1 ML VIAL ONE (05:44)
[2018-01-15] MEDS ORDERED: FENTANYL CITRATE INJ/PF 100 MCG/2 ML AMPUL IV ONE (06:06)
[2018-01-15 08:50] VITALS: BP 141/95
--- NOTE | 2018-01-15 09:06 | RADIOLOGY REPORT (SQ) ---
EXAM DESCRIPTION: CT HEAD WITHOUT IV CONTRAST COMPLETED DATE/TME: 01/15/2018 02:25 CLINICAL HISTORY: 32 years Male, ETOH, fall down stairs COMPARISON: None. TECHNIQUE: No contrast. Coronal and sagittal reformat. This exam was performed according to our departmental dose-optimization program, which includes automated exposure control, adjustment of the mA and/or kV according to patient size and/or use of iterative reconstruction technique. FINDINGS: No hemorrhage or infarct. No mass, mass effect, or midline shift. Brain and extra-axial structures appear intact. IMPRESSION: Normal CT of the head.
--- NOTE | 2018-01-15 09:06 | RADIOLOGY REPORT (SQ) ---
EXAM DESCRIPTION: CT chest abdomen and pelvis without IV contrast CLINICAL HISTORY: 32 years Male fall down stairs, pain in upper abdomen COMPARISON: None. Date and time completed: 01/15/2018 3:20 AM TECHNIQUE: Contiguous axial images obtained through the chest, abdomen and pelvis following IV contrast. Reformatted images obtained. This exam was performed according to our department optimization program which includes automated exposure control, adjustment of the mA and/or kv according to patient size and/or use of iterative reconstruction technique. FINDINGS: CHEST: Aorta is normal in caliber without evidence of dissection or rupture. No pericardial or pleural effusion. No significant thoracic adenopathy. Sternum and manubrium appear intact. Central compression at T8 which appears chronic. No evidence of pneumothorax. No pulmonary contusion or infiltrate. Abdomen pelvis: Mild fatty infiltration of the liver without laceration or surrounding fluid noted. Motion artifact limits evaluation. The spleen and pancreas appear unremarkable. No adrenal masses. The kidneys appear unremarkable. No hydronephrosis. The gallbladder is visualized. No aneurysmal dilatation of the aorta. No bowel obstruction. The appendix is not visualized.. No significant free fluid noted. IMPRESSION: No evidence to suggest abdominal or pelvic visceral injury Fatty liver No acute intrathoracic injury
--- NOTE | 2018-01-15 09:10 | RADIOLOGY REPORT (SQ) ---
EXAM DESCRIPTION: CT CERVICAL SPINE WITHOUT IV CONTRAST COMPLETED DATE/TME: 01/15/2018 02:25 CLINICAL HISTORY: ETOH, fall down stairs COMPARISON: None available TECHNIQUE: Axial CT of the cervical spine obtained without contrast. FINDINGS: Alignment of the cervical spine is maintained without evidence of subluxation. The atlantoaxial, atlantodental, and occipitoatlantal intervals are preserved. No fracture identified. Vertebral body height preserved. Prevertebral soft tissues are unremarkable. Mild endplate spondylosis and uncovertebral spurring. Intervertebral disc height preserved. No significant osseous central canal nor neural foraminal narrowing. Visualized skull base is intact. No fracture of the visualized facial bones. Visualized mastoid air cells and paranasal sinuses are well aerated. Visualized thyroid is unremarkable. No cervical lymphadenopathy. No pneumothorax in the visualized lung apices. DLP: 263.13 mGy-cm IMPRESSION: 1. No acute fracture or subluxation of the cervical spine. This exam was performed according to our departmental dose-optimization program, which includes automated exposure control, adjustment of the mA and/or kV according to patient size and/or use of iterative reconstruction technique.
== END 2018-01-15 08:49 | disposition home or self-care (01) ==
LOC: ER 02:22
DX: S09.90XA Unspecified injury of head, initial encounter (principal); F10.929 Alcohol use, unspecified with intoxication, unspecified; R07.9 Chest pain, unspecified; R10.84 Generalized abdominal pain; M25.551 Pain in right hip; W10.9XXA Fall (on) (from) unspecified stairs and steps, initial encounter; Y92.039 Unspecified place in apartment as the place of occurrence of the external cause; I10 Essential (primary) hypertension
CPT/HCPCS: 99285; 96374; 96375; 36415; 85025; 80048; 70450; 71260; 72125; 74177; J3010; J2060

== ENCOUNTER 2018-01-31 01:48 | Emergency (ER) | payer SELFPAY ==
[2018-01-31 01:59] VITALS: BP 177/141
[2018-01-31] MEDS ORDERED: PROMETHAZINE HCL 25 MG TABLET PO ONE (02:06)
[2018-01-31] MEDS ORDERED: OXYCODONE-ACETAMINOPHEN 5-325 MG TABLET PO ONE (02:06)
[2018-01-31] MEDS ORDERED: DIPH/PERTUSS(ACELL)/TETANUS VAC/PF 0.5 ML SYR (>=10YO) IM ONE (02:06)
[2018-01-31] MEDS ORDERED: DOXYCYCLINE HYCLATE 100 MG TABLET PO ONE (02:06)
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
[2018-01-31] MEDS ORDERED: LIDOCAINE 1%/EPINEPHRINE INJ 20 ML VIAL INJ ONE (03:08)
[2018-01-31] MEDS ORDERED: HYDROCODONE/ACETAMINOPHEN 5-325 MG (6 TAB/ER DISP) PO PRN (03:20)
== END 2018-01-31 04:40 | disposition home or self-care (01) ==
LOC: ER 01:48
DX: S51.812A Laceration without foreign body of left forearm, initial encounter (principal); W45.8XXA Other foreign body or object entering through skin, initial encounter; R20.0 Anesthesia of skin; I10 Essential (primary) hypertension
CPT/HCPCS: 99283; 90471; 73090; 90715; 12002; J3490

== ENCOUNTER 2018-07-06 14:16 | Emergency (ER) | payer SELFPAY ==
[2018-07-06] MEDS ORDERED: LIDOCAINE 2% URO-JET 5 ML KIT MM ONE ×2 (14:41→14:48)
[2018-07-06] MEDS ORDERED: DIPH/PERTUSS(ACELL)/TETANUS VAC/PF 0.5 ML SYR (>=10YO) IM ONE (15:03)
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
[2018-07-06 15:27] VITALS: BP 130/86
== END 2018-07-06 15:45 | disposition home or self-care (01) ==
LOC: ER 14:16
DX: T20.111A Burn of first degree of right ear [any part, except ear drum], initial encounter (principal); H92.01 Otalgia, right ear; I10 Essential (primary) hypertension; X58.XXXA Exposure to other specified factors, initial encounter
CPT/HCPCS: 99283; J3490

== ENCOUNTER 2018-07-19 02:12 | Emergency (ER) | payer SELFPAY ==
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
[2018-07-19] MEDS ORDERED: RINGERS SOLUTION,LACTATED 1,000 ML IV ONE (02:34)
[2018-07-19 02:38] LABS: ABSOLUTE EOSINOPHILS # (AUTO) 0.2 10^3/uL (0.0-0.6); ABSOLUTE LYMPHOCYTES (AUTO) 1.9 10^3/uL (0.5-4.7); ABSOLUTE MONOCYTES (AUTO) 0.8 10^3/uL (0.1-1.4); BASOPHILS % (AUTO) 0.6 % (0-2); HEMOGLOBIN 14.7 g/dL (13.5-17.0); RED BLOOD COUNT 4.73 10^6/uL (4.35-5.55); TOTAL CELLS COUNTED % (AUTO) 100 %
[2018-07-19 02:42] LABS: ABSOLUTE NEUT (AUTO) 2.6 10^3/uL (1.7-8.2); EOSINOPHILS % (AUTO) 3.9 % (0-6); HEMATOCRIT 42.5 % (37.9-51.0); LYMPHOCYTES % (AUTO) 34.5 % (13-45); MEAN CORPUSCULAR HGB CONC 34.5 g/dL (32.0-36.0); MEAN CORPUSCULAR VOLUME 90 fl (80-97); MONOCYTES % (AUTO) 14.6 % (3-13); PLATELET COUNT 267 10^3/uL (150-450); RED CELL DISTRIBUTION WIDTH 14.8 % (11.5-14.0); SEGMENTED NEUTROPHILS % (AUTO) 46.4 % (42-78); WHITE BLOOD COUNT 5.6 10^3/uL (4.0-10.5)
[2018-07-19 02:52] LABS: APPEARANCE,URINE CLEAR; BILIRUBIN,URINE NEGATIVE (NEGATIVE); COLOR,URINE YELLOW; GLUCOSE, URINE NEGATIVE (NEGATIVE); KETONES,URINE NEGATIVE (NEGATIVE); LEUKOCYTE ESTERASE,URINE NEGATIVE (NEGATIVE); NITRITE,URINE NEGATIVE (NEGATIVE); PROTEIN,URINE NEGATIVE (NEGATIVE); URINE SPECIFIC GRAVITY 1.017; UROBILINOGEN,URINE NEGATIVE mg/dL (<2.0)
[2018-07-19] MEDS ORDERED: NORMAL SALINE 1000 ML 1,000 ML IV ONE (03:01)
[2018-07-19 03:16] LABS: URINE AMPHETAMINES SCREEN NEGATIVE; URINE BARBITURATES SCREEN NEGATIVE; URINE BENZODIAZEPINES SCREEN UNCONFIRMED POSITIVE; URINE COCAINE SCREEN NEGATIVE; URINE MARIJUANA (THC) SCREEN UNCONFIRMED POSITIVE; URINE METHADONE SCREEN NEGATIVE; URINE PHENCYCLIDINE SCREEN NEGATIVE
--- NOTE | 2018-07-19 03:16 | RADIOLOGY REPORT (SQ) ---
EXAM DESCRIPTION: CT HEAD WITHOUT IV CONTRAST COMPLETED DATE/TME: 07/19/2018 02:21 CLINICAL HISTORY: 33 years, Male, AMS COMPARISON: 01/15/2018 TECHNIQUE: Axial CT images of the brain were obtained without contrast. Sagittal and coronal reformats were performed. [facility] [id number] Images stored on PACS. All CT scanners at this facility use dose modulation, iterative reconstruction, and/or weight based dosing when appropriate to reduce radiation dose to as low as reasonably achievable (ALARA). [facility]: Dose Right [facility]: CareDose [facility]: Dose Right [facility]: Teradose 4D [facility]: [employer] LIMITATIONS: None. FINDINGS: There is no acute infarct, hemorrhage, mass, edema, hydrocephalus, or extra-axial fluid collection. The paranasal sinuses and mastoid air cells are clear. There is no acute fracture IMPRESSION: No acute intracranial abnormality TECHNICAL DOCUMENTATION: Quality ID # [id number]: Final reports with documentation of one or more dose reduction techniques (e.g., Automated exposure control, adjustment of the mA and/or kV according to patient size, use of iterative reconstruction technique) copyright 2011 [employer]- All Rights Reserved
[2018-07-19 03:24] LABS: ALANINE AMINOTRANSFERASE 53 U/L (21-72); ALBUMIN 3.9 g/dL (3.5-5.0); ALKALINE PHOSPHATASE 54 U/L (38-126); ANION GAP 7 (5-19); ASPARTATE AMINO TRANSFERASE 64 U/L (17-59); BILIRUBIN,DIRECT 0.2 mg/dL (0.0-0.4); BILIRUBIN,TOTAL 0.7 mg/dL (0.2-1.3); BLOOD UREA NITROGEN 16 mg/dL (7-20); CALCIUM 8.8 mg/dL (8.4-10.2); CARBON DIOXIDE 27 mmol/L (22-30); CHLORIDE 107 mmol/L (98-107); GLUCOSE 89 mg/dL (75-110); SODIUM 140.8 mmol/L (137-145)
--- NOTE | 2018-07-19 08:24 | EKG REPORT ---
SEVERITY:- ABNORMAL ECG - SINUS RHYTHM MULTIPLE ATRIAL PREMATURE COMPLEXES : Confirmed by: Nkechi Romo MD 19-Jul-2018 08:23:48
[2018-07-19 14:31] VITALS: BP 107/76
== END 2018-07-19 14:38 | disposition home or self-care (01) ==
LOC: ER 02:12
DX: R40.0 Somnolence (principal); F12.10 Cannabis abuse, uncomplicated; F17.210 Nicotine dependence, cigarettes, uncomplicated; I10 Essential (primary) hypertension
CPT/HCPCS: 93005; 99285; 96360; 96361; 36415; 82962; 80307 ×2; 85025; 80053; 81001; 70450; 93010; J7030

== ENCOUNTER 2019-03-27 05:42 | Emergency (ER) | payer SELFPAY ==
[2019-03-27] MEDS ORDERED: NORMAL SALINE 1000 ML 1,000 ML IV ONE ×2 (07:20→09:27)
[2019-03-27 07:42] LABS: ALBUMIN 4.1 g/dL (3.5-5.0); ALCOHOL 32 mg/dL (NONE DETECTED); ALKALINE PHOSPHATASE 60 U/L (38-126); ANION GAP 11 (5-19); ASPARTATE AMINO TRANSFERASE 54 U/L (17-59); BILIRUBIN,DIRECT 0.1 mg/dL (0.0-0.4); BILIRUBIN,TOTAL 0.4 mg/dL (0.2-1.3); BLOOD UREA NITROGEN 20 mg/dL (7-20); CALCIUM 9.4 mg/dL (8.4-10.2); CARBON DIOXIDE 25 mmol/L (22-30); CHLORIDE 103 mmol/L (98-107); GLUCOSE 120 mg/dL (75-110); POTASSIUM 3.9 mmol/L (3.6-5.0); SALICYLATE 1.1 mg/dL (2.0-20.0); TOTAL PROTEIN 7.6 g/dL (6.3-8.2)
[2019-03-27 07:45] LABS: ACETAMINOPHEN < 10 ug/mL (10-30)
[2019-03-27 07:46] LABS: ABSOLUTE EOSINOPHILS # (AUTO) 0.6 10^3/uL (0.0-0.6); ABSOLUTE LYMPHOCYTES (AUTO) 1.8 10^3/uL (0.5-4.7); ABSOLUTE MONOCYTES (AUTO) 0.6 10^3/uL (0.1-1.4); BASOPHILS % (AUTO) 0.6 % (0-2); EOSINOPHILS % (AUTO) 9.5 % (0-6); HEMATOCRIT 39.2 % (37.9-51.0); HEMOGLOBIN 13.4 g/dL (13.5-17.0); LYMPHOCYTES % (AUTO) 30.5 % (13-45); MEAN CORPUSCULAR HEMOGLOBIN 29.4 pg (27.0-33.4); MEAN CORPUSCULAR HGB CONC 34.1 g/dL (32.0-36.0); MEAN CORPUSCULAR VOLUME 86 fl (80-97); MONOCYTES % (AUTO) 10.1 % (3-13); PLATELET COUNT 242 10^3/uL (150-450); RED BLOOD COUNT 4.54 10^6/uL (4.35-5.55); RED CELL DISTRIBUTION WIDTH 17.4 % (11.5-14.0); SEGMENTED NEUTROPHILS % (AUTO) 49.3 % (42-78); TOTAL CELLS COUNTED % (AUTO) 100 %
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
--- NOTE | 2019-03-27 09:34 | EKG REPORT ---
SEVERITY:- ABNORMAL ECG - SINUS RHYTHM MULTIPLE ATRIAL PREMATURE COMPLEXES PROLONGED QT INTERVAL : Confirmed by: Nkechi Romo MD 27-Mar-2019 09:33:51
[2019-03-27 11:50] LABS: APPEARANCE,URINE SLIGHTLY-CLOUDY; BILIRUBIN,URINE NEGATIVE (NEGATIVE); COLOR,URINE YELLOW; GLUCOSE, URINE NEGATIVE (NEGATIVE); KETONES,URINE NEGATIVE (NEGATIVE); LEUKOCYTE ESTERASE,URINE NEGATIVE (NEGATIVE); NITRITE,URINE NEGATIVE (NEGATIVE); PROTEIN,URINE NEGATIVE (NEGATIVE); URINE SPECIFIC GRAVITY 1.019; UROBILINOGEN,URINE NEGATIVE mg/dL (<2.0)
[2019-03-27 11:53] LABS: ADD MANUAL MICROSCOPIC YES
[2019-03-27 12:08] LABS: URINE AMPHETAMINES SCREEN NEGATIVE; URINE BARBITURATES SCREEN NEGATIVE; URINE COCAINE SCREEN NEGATIVE; URINE MARIJUANA (THC) SCREEN NEGATIVE; URINE METHADONE SCREEN NEGATIVE; URINE PHENCYCLIDINE SCREEN NEGATIVE
[2019-03-27 12:13] LABS: AMORPHOUS SEDIMENT,UR 1+; BACTERIA,URINE TRACE /HPF
[2019-03-27 15:22] VITALS: BP 123/94
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
== END 2019-03-27 15:23 | disposition home or self-care (01) ==
LOC: ER 05:42
DX: T50.904A Poisoning by unspecified drugs, medicaments and biological substances, undetermined, initial encounter (principal); X58.XXXA Exposure to other specified factors, initial encounter; F17.210 Nicotine dependence, cigarettes, uncomplicated; I10 Essential (primary) hypertension
CPT/HCPCS: 93005; 36415; 80307 ×4; 85025; 80053; 81001; 93010; J7030